=== PATIENT | female | born 1990 | race Caucasian/White ===

== ENCOUNTER 2017-03-23 10:45 | Emergency (ER) | payer OTHER ==
--- NOTE | 2017-03-29 17:58 | ER ---
ADMIT: 03/23/2017 RM/LOC: ER [facility] MR#: [id number] [facility] [id number] [place], [place] [id number] JIMENA SCANLON [address] [place] [address] Emergency Room Report SEX: F AGE: 26 : 1990 DATE: 03/23/2017 ADDENDUM: This patient comes into the ER because she is having a headache. She does not have a history of having headaches, and this one came on suddenly. The pain is at the front of her head and pulls down to the back of her head. She is sensitive to light and sound and this started 3 hours ago. On physical exam, she is alert and answers questions and speaks appropriately, but she is retching during my exam. IV of normal saline was started. She was given a liter of bolus with Ativan, Toradol, and Reglan. When I went to re- evaluate her, her pain was completely gone, and she felt quite a bit better. DIAGNOSIS: Cephalgia. We will have her go home. Rest. Push fluids. Follow up with her primary as needed. Please see my T-sheet. EVERT Scott / Satnam Shipley MD / shanice JOB #: [id number] CC: Satnam Shipley MD, Attending Physician UNKNOWN, Family Physician Luther Kirk MD
== END 2017-03-23 13:45 | disposition home or self-care (01) ==
LOC: ER 10:45
DX: R51 Headache (principal); Z91.040 Latex allergy status